=== PATIENT | male | born 1955 | race African-American/Black ===

== ENCOUNTER 2019-04-12 19:45 | Emergency (ER) | payer MEDICAID ==
[~2019-04-12] VITALS: Ht 185.4 cm; Wt 113.4 kg
[2019-04-12 20:10] VITALS: BP 120/58
--- NOTE | 2019-04-12 20:10 | NUR ---
ER Nurse Note: Pt brought in by ambulance from [facility] facility c/o lightheadedness d/t smoking marijuana since AM. Per EMS, pt has hx of smoking weed. EMS stated he was ambulating after smoking, felt lightheaded, had a near syncopal episode. Pt denies head trauma. Pt calm, HR baseline at 60pbm, no signs of distress. All safety measures met; will continue to montior.
[2019-04-12] MEDS ORDERED: CARVEDILOL6.25 MG ORAL (20:50)
[2019-04-12] MEDS ORDERED: FERROUS SULFAT325 MG ORAL (20:50)
[2019-04-12] MEDS ORDERED: CHLORTHALIDONE25 MG ORAL (20:50)
[2019-04-12] MEDS ORDERED: HALOPERIDOL1 MG ORAL (20:50)
[2019-04-12] MEDS ORDERED: LOSARTAN-HCTZ1 EAC1 ORAL (20:50)
[2019-04-12] MEDS ORDERED: SERTRALINE HCL25 MG ORAL (20:50)
[2019-04-12] MEDS ORDERED: ATIVAN1 MG ORAL (20:50)
[2019-04-12] MEDS ORDERED: BENZTROPINE ME0.5 MG PO (20:50)
[2019-04-12] MEDS ORDERED: SEREVENT DISKU50 MCG IH (20:50)
--- NOTE | 2019-04-12 20:50 | NUR ---
ER Nurse Note: All orders completed per ERMD orders; awaiting lab results. Pt relaxing, no signs of distress. HR <60bpm, asymptomatic. NS bolus infusion. All safety measures met; will continue to monitor.
[2019-04-12 20:52] LABS: BASOPHILS % (AUTO) 1.3 % (0.0-2.0); EOSINOPHILS % (AUTO) 3.5 % (0.0-3.0); HEMATOCRIT 36.9 % (42.0-52.0); HEMOGLOBIN 12.1 G/DL (14.2-18.0); LYMPHOCYTES % (AUTO) 39.9 % (20.0-45.0); MEAN CORPUSCULAR VOLUME 85 FL (80-99); MONOCYTES % (AUTO) 7.6 % (1.0-10.0); NEUTROPHILS % (AUTO) 47.7 % (45.0-75.0); PLATELET COUNT 146 K/UL (150-450); RED BLOOD COUNT 4.37 M/UL (4.70-6.10); RED CELL DISTRIBUTION WIDTH 13.6 % (11.6-14.8); WHITE BLOOD COUNT 7.7 K/UL (4.8-10.8)
[2019-04-12 21:01] LABS: APPEARANCE,URINE CLEAR; BILIRUBIN, URINE NEGATIVE (NEGATIVE); COLOR,URINE PALE YELLOW; GLUCOSE, URINE (UA) NEGATIVE (NEGATIVE); KETONES,URINE NEGATIVE (NEGATIVE); LEUKOCYTE ESTERASE ,URINE NEGATIVE (NEGATIVE); NITRITE,URINE NEGATIVE (NEGATIVE); PH,URINE 6.5 (4.5-8.0); PROTEIN,URINE NEGATIVE (NEGATIVE); UROBILINOGEN,URINE NORMAL MG/DL (0.0-1.0)
[2019-04-12 21:01] LABS: INR 1.1 (0.9-1.1)
[2019-04-12 21:09] LABS: ANION GAP 7 mmol/L (5-15); BLOOD UREA NITROGEN 15 mg/dL (7-18); CALCIUM 8.4 MG/DL (8.5-10.1); CARBON DIOXIDE 27 MMOL/L (21-32); CHLORIDE 95 MMOL/L (98-107); CREATININE 1.1 MG/DL (0.55-1.30); POTASSIUM 3.4 MMOL/L (3.5-5.1); SODIUM 129 MMOL/L (136-145)
[2019-04-12 21:13] LABS: ALANINE AMINOTRANSFERASE 26 U/L (12-78); ALBUMIN 3.5 G/DL (3.4-5.0); ALBUMIN/GLOBULIN RATIO 1.2 (1.0-2.7); ALKALINE PHOSPHATASE 89 U/L (46-116); ASPARTATE AMINO TRANSFERASE 18 U/L (15-37); BILIRUBIN,TOTAL 0.6 MG/DL (0.2-1.0)
--- NOTE | 2019-04-12 22:13 | Emergency Room Report ---
History of Present Illness General Chief Complaint: Syncope Source: Patient Present Illness HPI Is a 63-year-old male who presents after syncopal episode. Patient reports having no current complaints. He had syncopal episode after smoking marijuana. Prior history of psychiatric disease. He denies any headache or chest discomfort. No prior cardiac history is noted. Denies any vomiting or diarrhea. Allergies: Coded Allergies: No Known Allergies (Unverified , 04/12/19) Patient History Past Medical History: see triage record Reviewed Nursing Documentation: PMH: Agreed; PSxH: Agreed Nursing Documentation-PMH Hx Hypertension: Yes - anemia History Of Psychiatric Problem: Yes Review of Systems All Other Systems: negative except mentioned in HPI Physical Exam Vital Signs Date Time Temp Pulse Resp B/P (MAP) Pulse Ox O2 Delivery O2 Flow Rate FiO2 04/12/19 19:49 98.8 54 20 120/58 (78) 98 Room Air Sp02 EP Interpretation: reviewed, normal General Appearance: normal inspection, well appearing, no apparent distress, alert, GCS 15 Head: atraumatic ENT: normal ENT inspection, hearing grossly normal, normal voice Neck: normal inspection, full range of motion, supple, no bony tend Respiratory: normal inspection, lungs clear, normal breath sounds, no respiratory distress, no retraction, no wheezing Cardiovascular #1: regular rate, rhythm, no edema Gastrointestinal: normal inspection, normal bowel sounds, non tender, soft, no guarding, no hernia Genitourinary: no CVA tenderness Musculoskeletal: normal inspection, back normal, normal range of motion Neurologic: alert, motor strength/tone normal, chief mechanical engineer III-XII nml as tested, oriented x3, responsive, speech normal, normal inspection Psychiatric: normal inspection, judgement/insight normal, mood/affect normal Skin: no rash Medical Decision Making Diagnostic Impression: Primary Impression: Syncope Additional Impression: Right bundle branch block ER Course Patient is a 63-year-old male presents after syncopal episode. Differential diagnosis include was not limited to anemia, arrhythmia, substance abuse among others. Because of complexity of patient's case laboratory tests and imaging studies were ordered. EKG interpreted by me showed a sinus bradycardia with a rate of [address] or T wave changes right bundle branch block was present. Patient's laboratory testing was unremarkable no evidence of anemia. Patient does not have any recent leg pain or swelling. Patient appears to be stable for discharge back to his facility. The patient is advised to follow up with primary care doctor in 1-2 days. Patient is advised to return if any worsening condition or if any changes in status that are concerning. This report is dictated with [employer] commercial pilot software which may occasionally lead to discrepancies related to use of this software. Labs Test 04/12/19 20:20 04/12/19 20:30 Urine Color Pale yellow Urine Appearance Clear Urine pH 6.5 (4.5-8.0) Urine Specific [place] 1.010 (1.005-1.035) Urine Protein Negative (NEGATIVE) Urine Glucose (UA) Negative (NEGATIVE) Urine Ketones Negative (NEGATIVE) Urine Blood Negative (NEGATIVE) Urine Nitrite Negative (NEGATIVE) Urine Bilirubin Negative (NEGATIVE) Urine Urobilinogen Normal MG/DL (0.0-1.0) Urine Leukocyte Esterase Negative (NEGATIVE) White Blood Count 7.7 K/UL (4.8-10.8) Red Blood Count 4.37 M/UL (4.70-6.10) Hemoglobin 12.1 G/DL (14.2-18.0) Hematocrit 36.9 % (42.0-52.0) Mean Corpuscular Volume 85 FL (80-99) Mean Corpuscular Hemoglobin 27.7 PG (27.0-31.0) Mean Corpuscular Hemoglobin Concent 32.7 G/DL (32.0-36.0) Red Cell Distribution Width 13.6 % (11.6-14.8) Platelet Count 146 K/UL (150-450) Mean Platelet Volume 9.9 FL (6.5-10.1) Neutrophils (%) (Auto) 47.7 % (45.0-75.0) Lymphocytes (%) (Auto) 39.9 % (20.0-45.0) Monocytes (%) (Auto) 7.6 % (1.0-10.0) Eosinophils (%) (Auto) 3.5 % (0.0-3.0) Basophils (%) (Auto) 1.3 % (0.0-2.0) Prothrombin Time 11.4 SEC (9.30-11.50) Prothromb Time International Ratio 1.1 (0.9-1.1) Activated Partial Thromboplast Time 24 SEC (23-33) Sodium Level 129 MMOL/L (136-145) Potassium Level 3.4 MMOL/L (3.5-5.1) Chloride Level 95 MMOL/L (98-107) Carbon Dioxide Level 27 MMOL/L (21-32) Anion Gap 7 mmol/L (5-15) Blood Urea Nitrogen 15 mg/dL (7-18) Creatinine 1.1 MG/DL (0.55-1.30) Estimat Glomerular Filtration Rate > 60 mL/min (>60) Glucose Level 106 MG/DL (74-106) Calcium Level 8.4 MG/DL (8.5-10.1) Total Bilirubin 0.6 MG/DL (0.2-1.0) Aspartate Amino Transf (AST/SGOT) 18 U/L (15-37) Alanine Aminotransferase (ALT/SGPT) 26 U/L (12-78) Alkaline Phosphatase 89 U/L (46-116) Troponin I 0.002 ng/mL (0.000-0.056) Total Protein 6.5 G/DL (6.4-8.2) Albumin 3.5 G/DL (3.4-5.0) Globulin 3.0 g/dL Albumin/Globulin Ratio 1.2 (1.0-2.7) Lipase 51 U/L (73-393) EKG Diagnostic Results Rate: normal Rhythm: NSR ST Segments: no acute changes Last Vital Signs Date Time Temp Pulse Resp B/P (MAP) Pulse Ox O2 Delivery O2 Flow Rate FiO2 04/12/19 20:10 98.8 60 20 120/58 98 Room Air Status: improved Disposition: HOME, SELF-CARE Condition: Stable Roque Hdez MD Apr 12, 2019 22:13
[2019-04-12 22:26] VITALS: BP 124/59
--- NOTE | 2019-04-12 22:27 | NUR ---
ER Nurse Note: Pt VSS, no signs of distress, RA. Pt able to answers questions appropriately; denies pain, n/v, shortness of breath, dizziness. No falls on shift. All orders completed per ERMD orders. All safety measures met; will continue to monitor.
--- NOTE | 2019-04-12 23:17 | NUR ---
Spoke with Doug at [facility]-aware of patient going back by ambulance.
--- NOTE | 2019-04-12 23:49 | Diagnostic Imaging Report ---
EXAM: XR Chest, 1 View CLINICAL HISTORY: CP TECHNIQUE: Frontal view of the chest. COMPARISON: No relevant prior studies available. FINDINGS: Study limited to a single portable AP chest radiograph. No significant cardiac enlargement. Negative for parenchymal consolidation, pneumothorax or pleural fluid collections.
[2019-04-13 00:10] VITALS: BP 129/60
--- NOTE | 2019-04-13 00:10 | NUR ---
ED Nurse Note: Pt cleared by health care Provider for discharge. Discharge instructions and prescription was given and explained to pt with repeat verbalization and understanding of teachings. Emphazed to follow up with primay care physcian within 2-3 days for further care. All medical deviecs such as ID band and IV removed; IV site clean and bandaged. Pt is AAO x4, RA, VSS, ambulatory and left with all personal belongings via BLS to assistive leaving facility.
--- NOTE | 2019-04-13 07:27 | Diagnostic Imaging Report ---
EXAM: CT Head Without Intravenous Contrast CLINICAL HISTORY: GOMES, SYNCOPE TECHNIQUE: Axial computed tomography images of the head/brain without intravenous contrast. CTDI is 63 mGy and DLP is 1315 mGy-cm. One or more of the following dose reduction techniques were used: automated exposure control, adjustment of the mA and/or kV according to patient size, use of iterative reconstruction technique. COMPARISON: No relevant prior studies available. FINDINGS: Brain: Patchy low attenuation in the periventricular white matter is most consistent with chronic small vessel disease. Negative for mass- effect or intracranial hemorrhage. Ventricles: Unremarkable. No ventriculomegaly. Bones/joints: Unremarkable. No acute fracture. Soft tissues: Unremarkable. Sinuses: Unremarkable as visualized. No acute sinusitis. Mastoid air cells: Unremarkable as visualized. No mastoid effusion. Other findings: Motion degraded study. IMPRESSION: No acute intracranial abnormality.
== END 2019-04-13 00:10 | disposition home or self-care (01) ==
LOC: EDBD 19:45 → EMR 22:05
DX: R55 Syncope and collapse (principal); I45.10 Unspecified right bundle-branch block; F12.90 Cannabis use, unspecified, uncomplicated
CPT/HCPCS: 36415; 70450; 71045; 80053; 81003; 83690; 84484; 85025; 85610; 85730; 96374; J2405; J7040; Z7502; 99284